=== PATIENT | female | born 1970 | race Caucasian/White ===

== ENCOUNTER 2016-11-15 14:56 | Emergency (ER) | payer OTHER ==
[2016-11-15 15:35] LABS: BASOPHILS 0.9 %; BASOPHILS ABSOLUTE 0.06 10/3/uL (0.0-0.16); EOSINOPHILS 3.1 %; EOSINOPHILS ABSOLUTE 0.22 10/3/uL (0.0-0.53); ER CBC TAT 0 Hrs 14 Mins; HEMATOCRIT 41.9 % (36.0-48.0); HEMOGLOBIN 14.7 g/dL (12.0-16.0); IMMATURE GRANULOCYTES 0.1 %; IMMATURE GRANULOCYTES ABSOLUTE 0.01 10/3/uL (0.0-0.11); LYMPHOCYTES 27.6 %; LYMPHOCYTES ABSOLUTE 1.94 10/3/uL (0.67-4.30); MANUAL DIFF NO %; MEAN CORPUS HGB CONC 35.1 g/dL (32.0-36.0); MEAN CORPUSCULAR HEMOGLOB 32.3 pg (26.0-34.0); MEAN CORPUSCULAR VOLUME 92.1 fL (80-100); MEAN PLATELET VOLUME 11.1 fL (9.2-13.0); MONOCYTES 6.5 %; MONOCYTES ABSOLUTE 0.46 10/3/uL (0.21-1.20); NEUTROPHILS 61.8 %; NEUTROPHILS ABSOLUTE 4.35 10/3/uL (2.02-8.40); PLATELET COUNT 247 10/3/uL (150-400); RED CELL COUNT 4.55 10/6/uL (4.0-5.6)
[2016-11-15 15:42] LABS: PARTIAL THROMBO TIME 25.8 SEC (22.5-37.2); PROTIME (NOT ORD) 13.3 SEC (12.0-14.5)
[2016-11-15 15:49] LABS: BUN (BLOOD UREA NITROGEN) 12 MG/DL (6-23); CALCIUM, SERUM 8.7 MG/DL (8.5-10.4); CHEST PAIN PROFILE TAT 0 Hrs 28 Mins; CHLORIDE, SERUM 106 MMOL/L (96-112); CO2 (CARBON DIOXIDE) 29 MMOL/L (24-34); CREATININE 0.79 MG/DL (0.55-1.02); GFR AFRICAN AMERICAN 103 ML/MIN (>=60); GFR NON AFRICAN AMERICAN 89 ML/MIN (>=60); GLUCOSE, SERUM 84 MG/DL (60-99); POTASSIUM, SERUM 3.4 MMOL/L (3.5-5.3); SODIUM, SERUM 142 MMOL/L (135-148); TROPONIN I <0.02 NG/ML (<0.05)
== END 2016-11-15 19:47 | disposition home or self-care (01) ==
LOC: ER 14:56
PROVIDERS: Emergency Medicine
DX: R00.2 Palpitations (principal); Z88.2 Allergy status to sulfonamides
CPT/HCPCS: 71020; 80048; 83735; 84443; 84484; 85025; 85610; 85730; 93005; 93225; 99285